=== PATIENT | female | born 1990 ===

== ENCOUNTER 2024-09-12 11:28 | Emergency (ER) | payer OTHER ==
[~2024-09-12] VITALS: Ht 162.6 cm; Wt 72.6 kg
[2024-09-12 11:54] VITALS: BP 116/73; O2SAT 99
[2024-09-12] MEDS ORDERED: TAMSULOSIN HCL 0.4 MG CAP PO ONE ×2 (12:30→12:52)
[2024-09-12] MEDS ORDERED: FAMOtidine 10 MG/ML (4ML VIAL) IV ONE (12:30)
[2024-09-12] MEDS ORDERED: 0.9 % SODIUM CHLORIDE 1,000 ML IV ONE (12:30)
[2024-09-12] MEDS ORDERED: MORPHINE SULFATE 4 MG/ML VIAL IV ONE (12:30)
[2024-09-12] MEDS ORDERED: ONDANSETRON HCL 2 MG/ML VIAL IV ONE (12:30)
[2024-09-12] MEDS ORDERED: CEFTRIAXONE SODIUM 1,000 MG VIAL IV ONE (12:30)
[2024-09-12] MEDS ORDERED: ONDANSETRON HCL 2 MG/ML VIAL ONE (12:52)
[2024-09-12] MEDS ORDERED: CEFTRIAXONE SODIUM 1,000 MG VIAL ONE (12:52)
[2024-09-12] MEDS ORDERED: FAMOTIDINE/PF 20 MG/2 ML VIAL ONE (12:53)
[2024-09-12 13:07] LABS: BASO % 1.0 % (0.1-1.2); EOS # 0.45 (0.04-0.54); EOS % 4.1 % (0.7-7.0); LYMPH # 2.48 (1.18-3.74); LYMPH % 22.4 % (19.3-53.1); MEAN PLATELET VOLUME 9.20 fl (9.4-12.4); MONO # 0.93 (0.24-0.82); MONO % 8.4 % (4.7-12.5); NEUT # 7.08 (1.56-6.13); NEUT % 63.8 % (34.0-71.1); RED CELL DISTRIBUTION WIDTH 13.7 % (11.6-14.4)
[2024-09-12 13:33] LABS: INR 1.01
[2024-09-12 13:37] LABS: ALT/SGPT 31.0 U/L (12-78); AST/SGOT 14.0 U/L (15-37); BILIRUBIN TOTAL 0.3 mg/dL (0.3-1.2); BUN CREA RATIO 18.0 (7.0-25.0); CREATININE SERUM 0.85 mg/dL (0.55-1.02); GFR 75.68; GLOBULINA 3.3 G/DL (2.4-3.5); GLUCOSE FASTING 87.0 mg/dL (65-100); OSMOLALITY SERUM 281.0 MOSM/KG (275-295)
[2024-09-12 14:27] LABS: URINE APPEARANCE Clear; URINE BILIRRUBIN Negative (NEGATIVE); URINE BLOOD Negative; URINE GLUCOSE Negative (NEGATIVE); URINE KETONE Negative (NEGATIVE); URINE LEUKOCYTE Moderate; URINE NITRATE Error; URINE PROTEIN Negative (NEGATIVE); URINE UROBILINOGEN 0.2 E.U./dl
[2024-09-12 14:28] LABS: URINE BACTERIA 968.2 uL (0.0-1933); URINE EPITHELIAL CELLS 51.0 uL (0.0-38.8); URINE RBC 7.4 uL (0.0-20.8); URINE WBC 16.7 uL (0.0-23.2)
[2024-09-12 14:52] LABS: URINE CAST 0.14 uL (0.0-1.40)
[2024-09-12] MEDS ORDERED: PEPCID AC20 MG PO (15:11)
[2024-09-12] MEDS ORDERED: NORFLEX100MG PO (15:11)
[2024-09-12] MEDS ORDERED: BACTRIM DS TAB1 EACH PO (15:11)
[2024-09-12] MEDS ORDERED: KETO10TA2 PO (15:11)
[2024-09-12] MEDS ORDERED: KETOROLAC TROMETHAMINE 30 MG VIAL ONE (15:20)
[2024-09-12] MEDS ORDERED: KETOROLAC TROMETHAMINE 60 MG VIAL IM ONE (15:30)
== END 2024-09-12 16:01 | disposition home or self-care (01) ==
LOC: ER 11:28
PROVIDERS: General Practice
DX: R10.32 Left lower quadrant pain (principal); K76.89 Other specified diseases of liver

== ENCOUNTER → 2024-10-16 07:56 | Outpatient (CLI) | payer OTHER ==
[~2024-10-16 07:56] MED LIST: BACTRIM DS TAB1 EACH PO; KETO10TA2 PO; NORFLEX100MG PO; PEPCID AC20 MG PO
[2024-10-16 08:38] LABS: BASO % 1.5 % (0.1-1.2); EOS # 0.29 (0.04-0.54); EOS % 4.8 % (0.7-7.0); LYMPH # 1.57 (1.18-3.74); LYMPH % 26.3 % (19.3-53.1); MEAN PLATELET VOLUME 9.30 fl (9.4-12.4); MONO # 0.53 (0.24-0.82); MONO % 8.9 % (4.7-12.5); NEUT # 3.49 (1.56-6.13); NEUT % 58.3 % (34.0-71.1); RED CELL DISTRIBUTION WIDTH 13.6 % (11.6-14.4)
[2024-10-16 08:40] LABS: URINE APPEARANCE Clear; URINE BILIRRUBIN Negative (NEGATIVE); URINE BLOOD Negative; URINE COLOR Dark Yellow; URINE GLUCOSE Negative (NEGATIVE); URINE KETONE Trace (NEGATIVE); URINE LEUKOCYTE Trace; URINE NITRATE Negative; URINE PROTEIN Negative (NEGATIVE); URINE UROBILINOGEN 0.2 E.U./dl
[2024-10-16 08:41] LABS: URINE BACTERIA 506.2 uL (0.0-1933); URINE EPITHELIAL CELLS 11.2 uL (0.0-38.8); URINE RBC 11.5 uL (0.0-20.8); URINE WBC 14.0 uL (0.0-23.2)
[2024-10-16 08:42] LABS: URINE CAST 0.14 uL (0.0-1.40)
[2024-10-16 09:10] LABS: ALT/SGPT 25.0 U/L (12-78); AST/SGOT 14.0 U/L (15-37); BILIRUBIN TOTAL 0.31 mg/dL (0.3-1.2); BUN CREA RATIO 15.0 (7.0-25.0); CREATININE SERUM 0.88 mg/dL (0.55-1.02); GFR 72.71; GLOBULINA 3.5 G/DL (2.4-3.5); GLUCOSE FASTING 101.0 mg/dL (65-100); OSMOLALITY SERUM 283.0 MOSM/KG (275-295)
[2024-10-16 09:49] LABS: ERYTHROCYTE SEDIMENTATION RATE 8 mm/hr (0-20)
[2024-10-17 07:07] LABS: COMPLEMENT C3 125 mg/dL (82-167)
[2024-10-17 13:12] LABS: DNA AB DOUBLE STRABDED 1 IU/mL (0-9)
== END | disposition home or self-care (01) ==
LOC: LAB 07:37
PROVIDERS: ATTEND Student in an Organized Health Care Education/Training Program
DX: D64.9 Anemia, unspecified (principal); Z12.11 Encounter for screening for malignant neoplasm of colon; E03.8 Other specified hypothyroidism; N95.1 Menopausal and female climacteric states; I10 Essential (primary) hypertension; C51.9 Malignant neoplasm of vulva, unspecified; N30.00 Acute cystitis without hematuria; E83.51 Hypocalcemia; A64 Unspecified sexually transmitted disease; N39.0 Urinary tract infection, site not specified; R79.89 Other specified abnormal findings of blood chemistry; E55.9 Vitamin D deficiency, unspecified; A60.9 Anogenital herpesviral infection, unspecified; N93.0 Postcoital and contact bleeding

== ENCOUNTER → 2024-10-17 | Outpatient (CLI) | payer OTHER | END | disposition home or self-care (01) | LOC: MAMO-SONO | PROVIDERS: ATTEND Student in an Organized Health Care Education/Training Program | DX: N60.11 Diffuse cystic mastopathy of right breast (principal); N60.12 Diffuse cystic mastopathy of left breast ==